=== PATIENT | female | born 2000 | race Caucasian/White ===

== ENCOUNTER 2021-09-03 17:16 | Emergency (ER) | payer OTHER ==
[~2021-09-03] VITALS: Ht 160 cm; Wt 68.2 kg
[2021-09-03 18:15] VITALS: BP 156/98; PULSE 117; TEMP 98.2
[2021-09-03 18:50] LABS: BASO # 0.1 K/mm3 (0.0-0.2); BASO % 0.7 % (0.0-2.0); EOS # 0.1 K/mm3 (0.0-0.7); EOS % 0.6 % (0-4.0); GRAN % 69.9 % (42.2-75.2); HEMATOCRIT 43.4 % (37.0-47.0); HEMOGLOBIN 14.5 g/dl (12.5-16.0); LYMPH # 2.1 K/mm3 (1.2-3.4); MEAN CELL VOLUME 91 fl (80.0-100.0); MEAN CORPUSCULAR HEMOGLOBIN 31 pg (27.0-31.0); MEAN CORPUSCULAR HGB CONC 33 g/dl (33.0-37.0); MEAN PLATELET VOLUME 9.7 fl (7.4-10.4); MONO # 0.7 K/mm3 (0.1-0.6); MONO % 7.3 % (1.7-9.3); PLATELET COUNT 332 K/mm3 (130-400); RED BLOOD COUNT 4.75 M/mm3 (4.10-5.30); REDCELL DISTRIBUTION WIDTH-CV 12.5 % (11.5-14.5)
[2021-09-03 19:12] LABS: ALBUMIN 4.2 gm/dL (3.5-5.0); BILIRUBIN,TOTAL 0.5 mg/dL (0.2-1.2); CREATININE, serum 0.79 mg/dL (0.57-1.11); POTASSIUM 3.8 mmol/L (3.5-4.5); TOTAL PROTEIN 7.9 gm/dL (6.2-8.1)
== END 2021-09-03 22:15 | disposition home or self-care (01) ==
LOC: COL.ER 17:16
PROVIDERS: Personal Emergency Response Attendant
DX: A74.9 Chlamydial infection, unspecified (principal); N93.9 Abnormal uterine and vaginal bleeding, unspecified; Z88.2 Allergy status to sulfonamides
CPT/HCPCS: J0696; J7030